=== PATIENT | female | born 2000 | race Caucasian/White ===

== ENCOUNTER 2023-06-07 14:53 | Emergency (ER) | payer BC ==
[2023-06-07] MEDS ORDERED: Na Phos,M-B/Na Phos,DI-B 60 ML, Mineral Oil 50 ML, Docusate Sodium 400 MG, Magnesium Ci... RECTAL ONE ×4 (16:50)
== END 2023-06-07 18:45 | disposition home or self-care (01) ==
LOC: JP.ED 14:53
DX: K59.00 Constipation, unspecified (principal)
CPT/HCPCS: 99283; A9270-GY